=== PATIENT | female | born 1980 | race Caucasian/White ===

== ENCOUNTER 2016-12-31 12:24 | Emergency (ER) | payer BC ==
[~2016-12-31] VITALS: Ht 165.1 cm; Wt 61.7 kg
[2016-12-31 13:48] LABS: HEMATOCRIT 37.6 % (36.0-46.0); MCH 27.4 PG (29.0-34.0); MEAN PLAT.VOLUME 8.9 uM^3 (9.5-12.4); PLATELET COUNT 182 K/uL (156-360); RBC DIS.WIDTH-CV 12.9 % (11.8-14.6); RBC DIS.WIDTH-SD 38.8 % (39-53); RED BLOOD COUNT 4.53 M/uL (3.80-5.20); WHITE BLOOD COUNT 6.3 K/uL (4.1-10.2)
[2016-12-31 13:56] LABS: CHLORIDE 105 mEq/L (99-109); POTASSIUM 4.4 mEq/L (3.7-5.4); SODIUM 138 mEq/L (136-147)
[2016-12-31 13:57] LABS: D-DIMER ELISA < 150.00 ng/mLDDU (<230)
[2016-12-31 13:59] LABS: GLUCOSE 89 mg/dL (70-99)
[2016-12-31 14:00] LABS: ANION GAP 8 MEQ/L (2-14)
[2016-12-31 14:01] LABS: TOTAL BILIRUBIN 0.8 mg/dL (0.0-1.0)
[2016-12-31 14:02] LABS: ALKALINE PHOSPHATASE 56 IU/L (3-129); GFR ESTIMATE (CALCULATED) > 59 mL/min/
[2016-12-31 14:03] LABS: UREA NITROGEN (BUN) 13 mg/dL (9-23)
[2016-12-31 14:06] LABS: LIPASE 22 U/L (1.0-51.0)
[2016-12-31 14:12] LABS: QUANTITATIVE HCG < 4.0 MIU/ML
[2016-12-31 15:11] VITALS: BP 92/62
== END 2016-12-31 15:12 | disposition home or self-care (01) ==
LOC: EME 12:24
PROVIDERS: Emergency Medicine
DX: R07.9 Chest pain, unspecified (principal); R07.1 Chest pain on breathing
CPT/HCPCS: 71020; 80053; 83690; 84702; 85027; 85379; 93005; 99281; 99284